=== PATIENT | male | born 1980 | race Caucasian/White ===

== ENCOUNTER 2018-06-29 09:31 | Emergency (ER) | payer OTHER ==
[~2018-06-29] VITALS: Ht 175.3 cm; Wt 135.2 kg
[~2018-06-29 09:31] MED LIST: BUSPAR5 MG PO; CARBAMAZEPINE200 MG PO; FIBER CHOICE1 TABLET PO; GEODON20 MG PO; GEODON80 MG PO; PROTONIX40 MG PO; REGLAN10 MG PO; XANAX XR3 MG PO
[2018-06-29 10:08] LABS: BASOPHIL (%) 0.7 % (0-1); EOSINOPHIL (%) 0 % (0-5); HEMATOCRIT 38.1 % (38.0-50.0); HEMOGLOBIN 13.4 G/DL (12.5-16.6); IMMATURE GRANULOCYTE (%) 0.4 % (0.0-0.7); LYMPHOCYTE (%) 31.7 % (15-42); LYMPHOCYTE COUNT 1.8 K/uL (1.0-2.8); MCH 30.3 PG (29.0-34.0); MCHC 35.2 G/DL (30.0-36.0); MCV 86.2 FL (86-99); MONOCYTE (%) 11.4 % (3-12); MONOCYTE COUNT 0.7 K/uL (0-0.8); NEUTROPHIL (%) 55.8 % (45-76); NEUTROPHIL COUNT 3.2 K/uL (1.8-6.4); PLATELET COUNT 321 K/uL (156-360); RBC DIS.WIDTH-CV 12.5 % (11.8-14.6); RBC DIS.WIDTH-SD 39.5 % (39-53); RED BLOOD COUNT 4.42 M/uL (4.00-5.50); WHITE BLOOD COUNT 5.7 K/uL (4.1-10.2)
[2018-06-29 10:18] LABS: CHLORIDE 103 mEq/L (99-109); POTASSIUM 4.2 mEq/L (3.7-5.4); SODIUM 135 mEq/L (136-147)
[2018-06-29 10:20] LABS: GLUCOSE 110 mg/dL (70-99)
[2018-06-29 10:24] LABS: CREATININE 0.8 mg/dL (0.6-1.3); GFR ESTIMATE (CALCULATED) > 59 mL/min/ (58.99-99999)
[2018-06-29 10:25] LABS: UREA NITROGEN (BUN) 5 mg/dL (9-23)
[2018-06-29 11:07] LABS: CARBAMAZEPINE (TEGRETOL) 10.4 MCG/ML (4.0-12.0)
[2018-06-29 11:42] VITALS: BP 138/89
== END 2018-06-29 11:45 | disposition home or self-care (01) ==
LOC: EME 09:31
PROVIDERS: Emergency Medicine
DX: R56.9 Unspecified convulsions (principal); F41.9 Anxiety disorder, unspecified
CPT/HCPCS: 80048; 80156; 85025; 99281; 99284